=== PATIENT | female | born 1970 | race Caucasian/White ===

== ENCOUNTER → 2018-05-02 | Outpatient (CLI) | payer BC ==
--- NOTE | 2018-05-02 15:58 | KCIC ---
Bilateral digital screening mammograms with 3-D, symphysis: Reason for examination: Routine screening. No previous exams available for comparison. New baseline. Bilateral mammograms in CC and oblique projections were obtained with 2-D imaging and 3-D tomosynthesis imaging on a Siemens Inspiration unit and reviewed on the workstation. Interpretation was made with the benefit of CAD. The skin and nipples show no abnormalities. No abnormal axillary lymph nodes are seen. The breast parenchyma shows scattered fibroglandular density. (Breast density: Category B.) There are no dominant masses, suspicious calcifications or architectural distortions. Benign calcifications are present. Impression: No evidence of malignancy. Recommend routine screening. BI-RADS category 2: Benign "Our facility is accredited by the [employer] Mammography [employer]." This patient's information has been entered into a reminder system for the patient to be notified with the results of her examination and a target date for the next mammogram. Electronically signed by: Suzy Epps MD (05/02/2018 3:54 PM) [id number]
== END | disposition home or self-care (01) ==
LOC: KCIC MAMMO 11:08 → EDBD 11:08
PROVIDERS: ATTEND Nurse Practitioner Family
DX: Z12.31 Encounter for screening mammogram for malignant neoplasm of breast (principal)
CPT/HCPCS: 77063; 77067

== ENCOUNTER → 2019-05-08 | Outpatient (CLI) | payer BC ==
--- NOTE | 2019-05-08 16:07 | KCIC ---
EXAM: Lumbar spine, 3 views. HISTORY: Pain. Fall. COMPARISON: None. FINDINGS: 3 views of the lumbar spine are obtained. There is degenerative endplate remodeling with disc space narrowing, facet arthropathy and vacuum phenomenon at L5-S1. There is no listhesis. There is no fracture. There is an IUD overlying the pelvis. IMPRESSION: 1. Degenerative change at L5-S1. 2. No acute osseous finding. Electronically signed by: Miriam Andujar MD (05/08/2019 4:04 PM) [facility] [place]
== END | disposition home or self-care (01) ==
LOC: KCIC 12:25
PROVIDERS: ATTEND Nurse Practitioner Gerontology
DX: M47.817 Spondylosis without myelopathy or radiculopathy, lumbosacral region (principal); M12.88 Other specific arthropathies, not elsewhere classified, other specified site; G89.29 Other chronic pain
CPT/HCPCS: 72100